=== PATIENT | female | born 1995 | race Caucasian/White ===

== ENCOUNTER 2018-03-30 11:17 | Emergency (ER) | payer OTHER ==
[~2018-03-30] VITALS: Ht 165.1 cm; Wt 49.9 kg
[~2018-03-30 11:17] MED LIST: BIRTH CONTROL; FLOVENT DISKUS50 MCG IH; HYDROCODON-ACE1 EAC7 PO; LEVAQUIN 500 M500 M1 PO; MACROBID 100 M100 M1 PO; PYRIDIUM200 MG PO; VYVANSE30 MG PO; XANAX XR1 MG; ZOLOFT25 MG PO
[2018-03-30] MEDS ORDERED: ZOFRAN4 MG PO (12:31)
[2018-03-30 12:44] VITALS: BP 107/66
== END 2018-03-30 12:44 | disposition home or self-care (01) ==
LOC: M.ERS 11:17
DX: R55 Syncope and collapse (principal); R11.2 Nausea with vomiting, unspecified; F41.9 Anxiety disorder, unspecified; Z88.1 Allergy status to other antibiotic agents

== ENCOUNTER 2020-11-18 10:57 | Emergency (ER) | payer OTHER ==
[~2020-11-18] VITALS: Ht 167.6 cm; Wt 56.7 kg
[~2020-11-18 10:57] MED LIST changes: +ZOFRAN4 MG PO
[2020-11-18 11:18] LABS: URINE BILIRUBIN NEGATIVE (Negative); URINE BLOOD NEGATIVE (Negative); URINE CLARITY CLEAR; URINE COLOR YELLOW; URINE GLUCOSE-RANDOM NEGATIVE (Negative); URINE KETONES NEGATIVE (Negative); URINE LEUKOCYTES-REFLEX NEGATIVE (Negative); URINE NITRITE-REFLEX NEGATIVE (Negative); URINE PROTEIN NEGATIVE (Negative); URINE SPECIFIC GRAVITY <= 1.005 (1.005-1.030); URINE UROBILINOGEN 0.2 E.U./dl (0.2-1.0)
[2020-11-18 11:21] LABS: ABSOLUTE BASOPHILS 0.1 thou/uL (0.0-0.2); ABSOLUTE LYMPHOCYTES 1.8 thou/uL (0.8-5.3); ABSOLUTE MONOCYTES 0.6 thou/uL (0.0-1.2); ABSOLUTE NEUTROPHILS 6.5 thou/uL (1.6-8.1); BASOPHILS 0.9 %; EOSINOPHILS 0.1 %; HEMATOCRIT 39.7 % (37.0-47.0); HEMOGLOBIN 13.5 gm/dL (12.0-15.0); LYMPHOCYTES 20.1 %; MCH 30.3 pg (26.0-34.0); MCHC 34.1 g/dL (28.0-37.0); MCV 88.7 fL (80.0-100.0); MONOCYTES 6.4 %; MPV 8.6 fl. (7.2-11.1); NUCLEATED RBCS 0 /100WBC; PLATELET COUNT* 270 thou/uL (150-400); POLYS 72.5 %; RBC 4.48 mil/uL (4.20-5.00); RDW-CV 12.5 % (10.5-14.5); WBC 8.9 thou/uL (4.0-11.0)
[2020-11-18 13:29] VITALS: BP 104/74
== END 2020-11-18 13:29 | disposition home or self-care (01) ==
LOC: M.ERS 10:57
PROVIDERS: Nurse Practitioner
DX: O46.91 Antepartum hemorrhage, unspecified, first trimester (principal); Z3A.01 Less than 8 weeks gestation of pregnancy; Z88.1 Allergy status to other antibiotic agents